=== PATIENT | female | born 1930 | race Caucasian/White ===

== ENCOUNTER → 2017-12-04 | Outpatient (CLI) | payer MEDICARE, BC ==
[~2017-12-04] MED LIST: ANTIVERT 25MG25 MG PO; ATIVAN 0.50.5 MG/TAB PO; ATIVAN PO; HYOMAX; IMODIUM2 MG PO; INDERAL LA120 MG PO; INDERAL PO; LUTEIN PO; SERTRALINE PO; TYLENOL 325MG325 MG PO; VERELAN120 MG PO; VITAMIN D PO; ZOLOFT; ZOLOFT 50MG50 MG PO
== END ==
LOC: MC.RAD 10:39
DX: Z12.31 Encounter for screening mammogram for malignant neoplasm of breast (principal); Z98.890 Other specified postprocedural states

== ENCOUNTER 2018-03-26 17:30 | Emergency (ER) | payer MEDICARE, BC ==
[~2018-03-26] VITALS: Ht 160 cm; Wt 61.4 kg
[2018-03-26 17:32] VITALS: TEMP 97.8
[2018-03-26] MEDS ORDERED: VANCOCIN H125 MG/CAP PO (18:26)
[2018-03-26] MEDS ORDERED: CEPHALEXIN500 M1 PO (18:26)
[2018-03-26 18:30] LABS: BASO % 0.5 % (0.0-2.0); EOS # 0.1 (0.0-0.7); EOS % 2.1 % (0-4.0); GRAN # 4.4 (1.4-6.5); HEMATOCRIT 40.8 % (37.0-47.0); HEMOGLOBIN 13.6 g/dl (12.5-16.0); LYMPH # 1.4 (1.2-3.4); LYMPH % 21.7 % (20.0-51.0); MEAN CELL VOLUME 91 fl (80.0-100.0); MEAN CORPUSCULAR HEMOGLOBIN 30 pg (27.0-31.0); MEAN CORPUSCULAR HGB CONC 33 g/dl (33.0-37.0); MEAN PLATELET VOLUME 9.9 fl (7.4-10.4); MONO # 0.6 (0.1-0.6); MONO % 8.4 % (1.7-9.3); PLATELET COUNT 151 K/mm3 (130-400); RED BLOOD COUNT 4.47 M/mm3 (4.10-5.30); REDCELL DISTRIBUTION WIDTH-CV 13.2 % (11.5-14.5)
[2018-03-26] MEDS ORDERED: NEURONTIN300 MG/CAP PO (18:30)
[2018-03-26 18:34] LABS: ALBUMIN 3.6 gm/dL (3.5-5.0); BILIRUBIN,TOTAL 0.6 mg/dL (0.0-1.0); CALCIUM 8.9 mg/dL (8.4-10.2); CREATININE, serum 0.69 mg/dL (0.52-1.25); POTASSIUM 3.6 mmol/L (3.4-5.0); TOTAL PROTEIN 6.5 gm/dL (6.4-8.2)
[2018-03-26] MEDS ORDERED: FLAGYL500 MG PO (20:14)
[2018-03-26] MEDS ORDERED: BENTYL 20MG20 MG/TAB PO (20:14)
[2018-03-26 20:30] VITALS: BP 169/71; PULSE 74
== END 2018-03-26 20:30 | disposition home or self-care (01) ==
LOC: COL.ER 17:30
PROVIDERS: Emergency Medicine
DX: A04.72 Enterocolitis due to Clostridium difficile, not specified as recurrent (principal); I10 Essential (primary) hypertension; M19.90 Unspecified osteoarthritis, unspecified site; Z90.710 Acquired absence of both cervix and uterus
CPT/HCPCS: Q9967

== ENCOUNTER → 2018-12-26 | Outpatient (CLI) | payer MEDICARE, BC ==
[~2018-12-26] MED LIST changes: +BENTYL 20MG20 MG/TAB PO; +CEPHALEXIN500 M1 PO; +FLAGYL500 MG PO; +NEURONTIN300 MG/CAP PO; +VANCOCIN H125 MG/CAP PO
== END ==
LOC: MC.RAD 14:15
DX: Z12.31 Encounter for screening mammogram for malignant neoplasm of breast (principal); Z98.890 Other specified postprocedural states

== ENCOUNTER → 2020-02-21 | Outpatient (CLI) | payer MEDICARE, BC ==
[~2020-02-21] MED LIST changes: +IMODIUM 2MG CAPS2 MG PO; +PRILOSEC 20MG20 MG PO; -SERTRALINE PO
== END ==
LOC: DIET.TELE 08:00
DX: Z68.1 Body mass index [BMI] 19.9 or less, adult (principal); E43 Unspecified severe protein-calorie malnutrition
CPT/HCPCS: G2063

== ENCOUNTER → 2020-05-15 | Outpatient (CLI) | payer MEDICARE, BC | LOC: MC.RAD 13:43 | DX: Z12.31 Encounter for screening mammogram for malignant neoplasm of breast (principal) ==